=== PATIENT | female | born 1970 | race Caucasian/White ===

== ENCOUNTER 2019-05-08 11:37 | Emergency (ER) | payer MEDICAID ==
[~2019-05-08] VITALS: Ht 160 cm; Wt 87.1 kg
[2019-05-08 11:48] VITALS: Ht 160 cm; Wt 87.1 kg
[2019-05-08 12:56] LABS: BASOPHIL % 0.4 % (0-2); PLATELET COUNT 252 x10^3mcL (130-400)
[2019-05-08 13:00] LABS: RED CELL DISTRIBUTION WIDTH 18.3 % (11.5-14.5)
[2019-05-08 13:25] LABS: ALBUMIN 3.8 g/dL (3.4-5.0); ALKALINE PHOSPHATASE 121 U/L (46-116); ALT/SGPT 41 U/L (14-59); AST/SGOT 27 U/L (15-37); BILIRUBIN TOTAL 0.47 mg/dL (0.20-1.00); CALCIUM 8.8 mg/dL (8.5-10.1); CHLORIDE SERUM 105 mmol/L (98-107); CREATININE SERUM 0.7 mg/dL (0.6-1.0); GFR1 > 60 mL/min; GLUCOSE SERUM 102 mg/dL (74-106); POTASSIUM SERUM 4.1 mmol/L (3.5-5.1); SODIUM SERUM 142 mmol/L (136-145)
[2019-05-08 16:31] VITALS: BP 116/66
== END 2019-05-08 16:31 | disposition home or self-care (01) ==
LOC: ED 11:37
PROVIDERS: Specialist
DX: R51 Headache (principal); R11.0 Nausea; E78.00 Pure hypercholesterolemia, unspecified; Z86.73 Personal history of transient ischemic attack (TIA), and cerebral infarction without residual deficits
CPT/HCPCS: J1885; J7030